=== PATIENT | female | born 1970 ===

== ENCOUNTER 2018-03-07 11:49 | Emergency (ER) | payer MEDICAID ==
[2018-03-07 11:49] VITALS: BMI 26.2
[2018-03-07 11:56] VITALS: BP 124/80; PULSE 86; RESP 17; TEMP 98.3; O2SAT 99
--- NOTE | 2018-03-07 12:42 | C.PDOC ---
History Of Present Illness 47 year old female presents to the ED for evaluation of flu-like symptoms which began around four days ago. Patient reports generalized body aches and feeling weak. Last night patient started having a dry cough, which has prompted this visit. Patient took DayQuil and NyQuil a few days ago, but has not taken any medicine for her cough. She states her body aches and weakness have improved since onset and denies fever, chills, nausea and vomiting at this time. Time Seen by Provider: 03/07/18 12:11 Chief Complaint (Nursing): Cough, Cold, Congestion History Per: Patient History/Exam Limitations: no limitations Onset/Duration Of Symptoms: Days (4) Current Symptoms Are (Timing): Still Present Location Of Pain: Diffuse Myalgias Associated Symptoms: Cough. denies: Fever, Chills, Sputum, Nausea, Vomiting Additional History Per: Patient Past Medical History Reviewed: Historical Data, Nursing Documentation, Vital Signs Vital Signs: Last Vital Signs Temp 98.3 F 03/07/18 11:53 Pulse 86 03/07/18 11:53 Resp 17 03/07/18 11:53 BP 124/80 03/07/18 11:53 Pulse Ox 99 03/07/18 11:53 - Medical History PMH: HTN Surgical History: No Surg Hx Family History: States: Unknown Family Hx - Social History Hx Alcohol Use: Yes Hx Substance Use: No - Immunization History Hx Tetanus Toxoid Vaccination: No Hx Influenza Vaccination: No Hx Pneumococcal Vaccination: No Review Of Systems Constitutional: Positive for: Weakness. Negative for: Fever, Chills Respiratory: Positive for: Cough. Negative for: Sputum Gastrointestinal: Negative for: Nausea, Vomiting Musculoskeletal: Positive for: Other (generalized body aches ) Physical Exam - Physical Exam Appears: Non-toxic, No Acute Distress Skin: Normal Color, Warm, Dry Head: Atraumatic, Normacephalic Eye(s): bilateral: Normal Inspection Ear(s): Bilateral: Normal Nose: Normal, No Discharge Oral Mucosa: Moist Throat: Normal, No Erythema, No Exudate Neck: Supple Chest: Symmetrical, No Deformity, No Tenderness Cardiovascular: Rhythm Regular, No Murmur Respiratory: Normal Breath Sounds, No Rales, No Rhonchi, No Wheezing Extremity: Normal ROM, Capillary Refill (less than 2 seconds ) Neurological/Psych: Oriented x3, Normal Speech, Normal Cognition ED Course And Treatment O2 Sat by Pulse Oximetry: 99 (on RA ) Pulse Ox Interpretation: Normal Medical Decision Making Medical Decision Making: Impression: 47 year old female with generalized body aches, weakness, dry cough Progress: On reassessment, patient is resting comfortably, remains afebrile, and is showing no signs of distress. Patient is stable for discharge and is advised to follow up with her PMD within 1-2 days for further evaluation. Advised supportive care (can continue dayquil/nyquil, plus drink fluids, rest) for symptoms. Will give Rx for tessalon pearles for new onset cough. Advised outpatient followup. Return to the ED for any new or worsening symptoms. Disposition - Disposition Disposition: HOME/ ROUTINE Disposition Time: 12:37 Condition: GOOD Additional Instructions: RIVERA TYLER, thank you for letting us take care of you today. Your provider was Oksana Chavez MD and you were treated for COUGH, SOB. The emergency medical care you received today was directed at your acute symptoms. If you were prescribed any medication, please fill it and take as directed. It may take several days for your symptoms to resolve. Return to the Emergency Department if your symptoms worsen, do not improve, or if you have any other problems. Please contact your doctor or call one of the physicians/clinics you have been referred to that are listed on the Patient Visit Information form that is included in your discharge packet. Bring any paperwork you were given at discharge with you along with any medications you are taking to your follow up visit. Our treatment cannot replace ongoing medical care by a primary care provider outside of the emergency department. Thank you for allowing the [facility] team to be part of your care today. If you had an X-Ray or CT scan: A Radiologist will review the ED reading if any change in treatment is needed we will contact you. If you had a blood, urine, or wound culture: It will take several days for the results, if any change in treatment is needed we will contact you. If you had an STI test: It will take 48 hours for the results. Please call after 1 week if you have not heard back. Prescriptions: Benzonatate [Tessalon Perles] 100 mg PO Q8H PRN #[id number] PRN Reason: Cough Instructions: Upper Respiratory Infection (ED) Forms: [facility] (Hungarian) - Clinical Impression Clinical Impression: Upper respiratory infection - Scribe Statement The provider has reviewed the documentation as recorded by the Scribe (Coni Keene) Provider Attestation: All medical record entries made by the Scribe were at my direction and personally dictated by me. I have reviewed the chart and agree that the record accurately reflects my personal performance of the history, physical exam, medical decision making, and the department course for this patient. I have also personally directed, reviewed, and agree with the discharge instructions and disposition.
== END 2018-03-07 12:45 | disposition home or self-care (01) ==
LOC: C.ER 11:49
DX: J06.9 Acute upper respiratory infection, unspecified (principal); I10 Essential (primary) hypertension